=== PATIENT | female | born 1965 | race Caucasian/White ===

== ENCOUNTER 2017-10-02 16:58 | Emergency (ER) | payer MEDICAID ==
[2017-10-02] MEDS: LORAZEPAM 0.5 MG TAB PO (18:25)
== END 2017-10-02 21:08 | disposition home or self-care (01) ==
LOC: E/R 21:08
DX: R51 Headache (principal); R40.2252 Coma scale, best verbal response, oriented, at arrival to emergency department; F41.9 Anxiety disorder, unspecified; I10 Essential (primary) hypertension; R40.2142 Coma scale, eyes open, spontaneous, at arrival to emergency department; R40.2362 Coma scale, best motor response, obeys commands, at arrival to emergency department
CPT/HCPCS: 36415; 70450; 93005; 99284-25